=== PATIENT | male | born 1945 ===

== ENCOUNTER 2019-06-18 14:45 | Inpatient (IN) | payer OTHER, MEDICARE ==
[~2019-06-18] VITALS: Ht 170.2 cm; Wt 59.5 kg
[2019-06-18 15:37] LABS: BASOPHILS ABSOLUTE AUTO 0.01 K/mm3 (0.00-0.23); BASOPHILS PERCENT AUTO 0 % (0-2); EOSINOPHILS PERCENT AUTO 0 % (0-6); Hematocrit 27.1 % (37.0-53.0); IMMATURE GRAN ABSOLUTE AUTO 0.07 K/mm3 (0.00-0.10); IMMATURE GRAN PERCENT AUTO 1 % (0-1); LYMPHOCYTES ABSOLUTE AUTO 0.97 K/mm3 (0.84-5.20); LYMPHOCYTES PERCENT AUTO 11 % (21-46); MONOCYTES ABSOLUTE AUTO 0.74 K/mm3 (0.16-1.47); MONOCYTES PERCENT AUTO 9 % (4-13); Mean Corpuscular HGB 32.5 pg (26.0-34.0); Mean Corpuscular HGB Conc 33.2 g/dL (31.5-36.5); Mean Corpuscular Volume 98 fL (80-100); Mean Platelet Volume 9.5 fL (9.1-12.4); NEUTROPHILS ABSOLUTE AUTO 6.74 K/mm3 (1.96-9.15); NEUTROPHILS PERCENT AUTO 79 % (41-73); Platelet Count 210 K/mm3 (150-400); RDW Coefficient Variation 12.9 % (11.7-14.2); RDW Standard Deviation 46.3 fL (35.1-46.3); Red Blood Cell Count 2.77 M/mm3 (4.30-5.90); White Blood Cell Count 8.53 K/mm3 (4.00-11.30)
[2019-06-18 16:02] LABS: Alanine Aminotransfer (ALT/SGP 16 U/L (12-78); Albumin/Globulin Ratio 0.4 (0.8-1.8); Alk Phos 63 U/L (50-136); Anion Gap 13 mmol/L (6-16); Aspartate Aminotrans (AST/SGOT 11 U/L (12-37); Bilirubin, Total 0.4 mg/dL (0.1-1.0); Blood Urea Nitrogen 44 mg/dL (8-24); Bun/Creatinine Ratio 15.8 (12.0-20.0); CO2, Blood 21 mmol/L (21-32); Calcium, Blood 11.2 mg/dL (8.5-10.1); Chloride, Blood 97 mmol/L (98-108); Creatinine, Blood 2.78 mg/dL (0.60-1.20); Globulin, Blood 6.9 g/dL (2.2-4.0); Glomerular Filtration Rate 24 (60-); Glucose, Blood 112 mg/dL (70-99); Sodium, Blood 131 mmol/L (136-145); Total Protein, Blood 9.9 g/dL (6.4-8.2)
[2019-06-18 16:03] LABS: Troponin I <0.015 ng/mL (0.000-0.040)
[2019-06-18] MEDS ORDERED: CENTRUM SILVER1 EAC2 PO (17:14)
[2019-06-18] MEDS ORDERED: ACET325 PO (17:19)
[2019-06-18 17:43] LABS: Source, Urine Voided
[2019-06-18 17:55] LABS: Bilirubin, Urine Neg (Neg); Blood, Urine Neg (Neg); Glucose Qualitative, Urine Neg (Neg); Ketones, Urine Neg (Neg); Leukocyte Esterase, Urine 1+ (Neg); Nitrite, Urine Neg (Neg); Protein, Urine Neg (Neg); Urobilinogen, Urine NORM (Normal)
[2019-06-18 18:02] LABS: Appearance, Urine Clear (Clear); Color, Urine Yellow (P-Yellow)
[2019-06-18 18:05] LABS: Bacteria Mod /hpf; Red Blood Cells, Urine 0-2 /hpf (0-2); Squamous Epithelial Cells Rare /hpf (Few)
[2019-06-18 19:32] LABS: Phosphorus, Blood 3.5 mg/dL (2.5-4.9)
[2019-06-18 20:30] LABS: Source, Urine Clean Catch
[2019-06-18 20:32] LABS: Bilirubin, Urine Neg (Neg); Blood, Urine Neg (Neg); Glucose Qualitative, Urine Neg (Neg); Ketones, Urine Neg (Neg); Leukocyte Esterase, Urine 2+ (Neg); Nitrite, Urine Neg (Neg); Protein, Urine Neg (Neg); Urobilinogen, Urine NORM (Normal)
[2019-06-18 20:34] LABS: Appearance, Urine Clear (Clear); Color, Urine Yellow (P-Yellow)
[2019-06-18 20:40] LABS: Bacteria Few /hpf; Red Blood Cells, Urine 0-2 /hpf (0-2); Squamous Epithelial Cells Rare /hpf (Few)
--- NOTE | 2019-06-18 22:52 | NUR ---
ORTHOSTATIC VITALS THE PT WAS UNABLE TO COMPLETE ORTHOSTATIC VITALS. I DID NOT FEEL IT WAS SAFE TO COMPLETE THEM EITHER. WE WERE ABLE TO GET TO A SITTIING POSITION WITH MAXIMUM ASSISTANCE, STANDING WOULD NOT OF BEEN POSSIBLE.
--- NOTE | 2019-06-19 03:10 | NUR ---
Orthostatic VS Patient was unable to stand for orthostatic blood pressure. Blood pressure increased when going from lying down to sitting position.
--- NOTE | 2019-06-19 05:16 | NUR ---
Shift Summary Patient admitted from ED with probably prostate CA and mets. He is A&O and VSS. It was noted that his HR was irregular, and so hospitalist was called and telemetry ordered. Report shows SR with PVCs and PACs. Also updated provider about large volume of urine output through the posada. Patient rested without issue after admission completed.
[2019-06-19 05:36] LABS: BASOPHILS ABSOLUTE AUTO 0.01 K/mm3 (0.00-0.23); BASOPHILS PERCENT AUTO 0 % (0-2); EOSINOPHILS ABSOLUTE AUTO 0.01 K/mm3 (0.00-0.68); EOSINOPHILS PERCENT AUTO 0 % (0-6); Hematocrit 26.7 % (37.0-53.0); Hemoglobin 8.9 g/dL (13.5-17.5); IMMATURE GRAN ABSOLUTE AUTO 0.07 K/mm3 (0.00-0.10); IMMATURE GRAN PERCENT AUTO 1 % (0-1); LYMPHOCYTES PERCENT AUTO 14 % (21-46); MONOCYTES ABSOLUTE AUTO 0.43 K/mm3 (0.16-1.47); MONOCYTES PERCENT AUTO 8 % (4-13); Mean Corpuscular HGB Conc 33.3 g/dL (31.5-36.5); Mean Corpuscular Volume 96 fL (80-100); Mean Platelet Volume 9.4 fL (9.1-12.4); NEUTROPHILS ABSOLUTE AUTO 3.92 K/mm3 (1.96-9.15); NEUTROPHILS PERCENT AUTO 76 % (41-73); Platelet Count 188 K/mm3 (150-400); RDW Coefficient Variation 13.1 % (11.7-14.2); Red Blood Cell Count 2.78 M/mm3 (4.30-5.90); White Blood Cell Count 5.14 K/mm3 (4.00-11.30)
[2019-06-19 05:57] LABS: Bun/Creatinine Ratio 15.4 (12.0-20.0); Calcium, Blood 10.5 mg/dL (8.5-10.1); Creatinine, Blood 2.6 mg/dL (0.60-1.20); Potassium, Blood 3.8 mmol/L (3.5-5.5)
[2019-06-19] MEDS ORDERED: HYDR1TAB94 PO (14:41)
[2019-06-19] MEDS ORDERED: BISA5EC PO (14:41)
[2019-06-19] MEDS ORDERED: Ondansetron Odt8 MG MM (14:42)
--- NOTE | 2019-06-19 16:04 | NUR ---
[facility] REPORT CALLED TO NURSE KENZIE. HARD SCRIPT FOR APARNA SENT WITH D/C PACKET. PATIENT DENIES ANY QUESTIONA OR CONCERNS.
== END 2019-06-19 16:05 | disposition hospice, inpatient (51) | DRG 543 ==
LOC: ER 14:45 → MEDS 18:38
PROVIDERS: Emergency Medicine; Nurse Practitioner Acute Care; ADMIT Internal Medicine
DX: C79.51 Secondary malignant neoplasm of bone (principal); C79.82 Secondary malignant neoplasm of genital organs; N13.1 Hydronephrosis with ureteral stricture, not elsewhere classified; N17.9 Acute kidney failure, unspecified; M84.48XA Pathological fracture, other site, initial encounter for fracture; E46 Unspecified protein-calorie malnutrition; N32.0 Bladder-neck obstruction; Z68.20 Body mass index [BMI] 20.0-20.9, adult; W19.XXXA Unspecified fall, initial encounter
CPT/HCPCS: 36415; 51702; 71045; 74176; 80048; 80053; 81001; 84100; 84153; 84443; 84484; 85025; 87086; 93005; 93010; 96360-59; 99285-25; A9270; J1644; J7030